=== PATIENT | female | born 1935 | race Caucasian/White ===

== ENCOUNTER 2019-12-03 19:29 | Inpatient (IN) ==
[2019-12-03 22:01] LABS: BASO# 0.03 X1000 (0.0-0.2); BASO% 0.3 % (0.0-0.8); EOS# 0.19 X1000 (0.0-0.7); EOS% 1.7 % (0.0-10.0); HEMATOCRIT 47.4 % (37.0-47.0); HEMOGLOBIN 15.5 g/dL (12.0-16.0); IMM GRAN# 0.02 X1000 (0.0-0.04); IMM GRAN% 0.2 % (0.0-0.5); MCH 30.3 PG (27-31); MCHC 32.7 g/dL (33-37); MCV 92.8 FL (81-99); MONO# 0.88 X1000 (0.11-0.59); MONO% 8.1 % (1.7-9.3); MPV 10.7 FL (7.4-10.4); NEUT% 67.7 % (42.2-75.2); PLT 178 X1000 (130-400); RBC 5.11 XMIL (4.2-5.4); RDW 13.2 % (11.5-14.5); WBC 10.92 X1000 (4.8-10.8)
--- NOTE | 2019-12-03 22:04 | Diag Imaging Result Doc PS360 ---
EXAM: CT ANGIOGRM PULMONARY ARTERIES HISTORY: SOB x 1wk,hypoxia,elevated d-dimer TECHNIQUE: CT chest with intravenous contrast. Pulmonary arterial protocol with MIP images. COMPARISON: None. FINDINGS: There are large bilateral pulmonary emboli in the main pulmonary arteries with large emboli extending into each of the lobes. The heart is mildly enlarged. No pleural effusions. No aortic aneurysm or dissection. Calcified right middle lobe granuloma. No consolidation. No bronchiectasis. IMPRESSION: Large bilateral pulmonary emboli. This report was discussed with Rhea Skelton in the ER on 12/03/2019 at 10:00 PM and was readback. This exam was performed using automated exposure control, adjustment of mA or kV according to patient size, and/or use of iterative reconstruction technique. Electronically signed by Jorge Haider 12/03/2019 10:01 PM
[2019-12-03 22:09] LABS: INR 1.1; PROTIME 14.3 Seconds (11.0-16.0)
[2019-12-03 22:10] LABS: PTT 28.2 Seconds (22.3-41.8)
[2019-12-03 23:35] LABS: ALLEN TEST YES; BE -3.6 mmoll (-3.0-3.0); BLOOD TYPE ARTERIAL; METHB 0.8 % (0.0-1.5); O2HB 92.4 % (95.0-99.0); PCO2(98.6) 28 mmHg (35-45); PO2(98.6) 62 mmHg (60-100); SAMPLE BLOOD; SAO2 94.5 % (95.0-100.0); THB 15.4 g/dL (11.5-17.4); pH(98.6) 7.44 (7.35-7.45)
[2019-12-03 23:36] LABS: MODALITY VENTIMASK
[2019-12-04] MEDS ORDERED: ZOFRAN IV PRN (00:58)
[2019-12-04] MEDS ORDERED: TYLENOL PO PRN (00:58)
[2019-12-04] MEDS ORDERED: HEPARIN IV ONE ×2 (01:25→17:50)
[2019-12-04] MEDS: HEPARIN 25,000 UNITS/D5W 25,000 UNIT/250 ML IV.SOLN IV SCH (01:35)
[2019-12-04 04:25] LABS: ALLEN TEST YES; BE -2.7 mmoll (-3.0-3.0); BLOOD TYPE ARTERIAL; HCO3-(ACT) 22.6 mmoll (20.0-26.0); METHB 1.3 % (0.0-1.5); O2HB 91.4 % (95.0-99.0); PCO2(98.6) 32 mmHg (35-45); PO2(98.6) 62 mmHg (60-100); SAMPLE BLOOD; SAO2 93.7 % (95.0-100.0); THB 14.8 g/dL (11.5-17.4); pH(98.6) 7.42 (7.35-7.45)
[2019-12-04 04:26] LABS: MODALITY VENTIMASK
[2019-12-04 05:40] LABS: BASO# 0.02 X1000 (0.0-0.2); BASO% 0.2 % (0.0-0.8); EOS# 0.17 X1000 (0.0-0.7); HEMATOCRIT 45.6 % (37.0-47.0); HEMOGLOBIN 15.1 g/dL (12.0-16.0); IMM GRAN# 0.02 X1000 (0.0-0.04); IMM GRAN% 0.2 % (0.0-0.5); LYMPH# 2.75 X1000 (1.2-3.4); LYMPH% 31.8 % (20.5-51.1); MCH 30.8 PG (27-31); MCHC 33.1 g/dL (33-37); MCV 92.9 FL (81-99); MONO# 0.67 X1000 (0.11-0.59); MONO% 7.7 % (1.7-9.3); NEUT# 5.03 X1000 (1.4-6.5); NEUT% 58.1 % (42.2-75.2); PLT 162 X1000 (130-400); RBC 4.91 XMIL (4.2-5.4); RDW 13.2 % (11.5-14.5); WBC 8.66 X1000 (4.8-10.8)
[2019-12-04 06:27] LABS: ALB/GLOB RATIO 1.2; ALBUMIN 3.8 g/dL (3.5-5.0); CALCIUM 9.8 mg/dL (8.8-10.2); CREATININE 0.9 mg/dL (0.5-0.9); MAGNESIUM 2.3 mg/dL (1.5-2.7); POTASSIUM 4.5 mmol/L (3.5-5.1); TOTAL BILIRUBIN 0.73 mg/dL (0.20-1.00)
--- NOTE | 2019-12-04 07:16 | HISTORY AND PHYSICAL ---
PRIMARY CARE PROVIDER: Dr. Ashley Miguel. CHIEF COMPLAINT: Shortness of breath. HISTORY OF PRESENT ILLNESS: Ms. Clarke is an 84-year-old, female with a past medical history most notable for hypertension, hyperlipidemia, and thyroid disease. The patient states that for one week now, she has been having shortness of breath. She states that at rest, she is not dyspneic, though when she gets up and walks only a short distance, she becomes very dyspneic. She denies any headache, dizziness, or lightheadedness. She denies any chest pain or cough. She denies any abdominal pain, nausea, vomiting, or diarrhea. She denies any hematochezia or melena. She denies any dysuria or urinary frequency. She denies any pain, numbness, tingling or swelling in extremities. The patient also denies any fever, body aches, or chills. She denies any recent illnesses or being around anyone who has been sick. She also denies any recent travel or any recent episodes where she was sitting for a long time or was immobile for a long time. She also denies any history of DVT or PE. She denies any known family history of this as well. The patient did present to Dr. Miguel's office today for further evaluation of her shortness of breath. According to reports from Dr. Miguel to Dr. Gallegos, the patient was dyspneic, was hypoxic. She performed studies of troponin and D-dimer. Her D-dimer was 8.05 and her troponin was 42. Dr. Miguel did bring the patient to the ER, though did call Dr. Gallegos for the patient to be direct admitted. The patient's initial vital signs were temperature 97.7 degrees, heart rate 98, respirations 18, blood pressure was 119/78, oxygen saturation was 90% on room air. The patient was placed on nasal cannula at 2 L. Creatinine was slightly elevated at 1.2 with a GFR of 43. Dr. Miguel did send some laboratory work from 11/02/2019. At that time, her creatinine was 1. The patient denied any history of having any kidney disease. I did notify Dr. Gallegos of the patient's slightly elevated creatinine of 1.2 with a GFR of 43. He did state to go ahead and continue with CTA of pulmonary arteries. Pulmonary arteriogram did show the patient had large bilateral pulmonary emboli in the main pulmonary arteries with large emboli extending into each of the lobes. Her heart was mildly enlarged but there was no effusions, no consolidations, no aortic aneurysm or dissection noted. The patient was placed in the ICU for close monitoring. REVIEW OF SYSTEMS: A 14 point review of systems was conducted with the patient and all were negative except for pertinent positives mentioned above in the HPI. PAST MEDICAL HISTORY: 1. Hypertension. 2. Hyperlipidemia. 3. Seasonal allergies. 4. Sciatic nerve pain. 5. Thyroid disease. 6. Overactive bladder. 7. Cataracts. 8. History of GERD with a small hiatal hernia, status post esophageal dilation. 9. History of bladder prolapse and recurrent urinary tract infections, status post bladder surgery. PAST SURGICAL HISTORY: 1. Ultrasound-guided ablation of the right greater saphenous vein for varicose veins with pain by Dr. Valenzuela in July 2018. 2. Arthroscopy of bilateral shoulders. 3. Cataract surgery. 4. Partial hysterectomy. 5. Tonsillectomy and adenoidectomy. SOCIAL HISTORY: The patient denied any tobacco, alcohol, or illicit drug use. She . Her was present at bedside with her. FAMILY HISTORY: Positive for her mother having a history of lung problems. Her father had a history of heart problems. ALLERGIES: Patient has no known allergies. HOME MEDICATIONS: We are awaiting for the patient's home medication list to be updated and verified, though she did inform me that she takes amiloride 5 mg tablets b.i.d. for BP and fluid retention, Claritin 10 mg p.o. daily, Cozaar 100 mg 1 tablet p.o. daily, Estrace vaginal cream 0.1 mg/g applied to internal and external of vagina 3 times per week, felodipine 2.5 mg extended release tablet 1 p.o. daily for blood pressure, gabapentin 100 mg capsules (the patient is instructed to take two capsules twice a day at 7 a.m. and 3 p.m. as needed, as well as she may take an additional four 100 mg capsules at bedtime if needed for sciatica pain), levothyroxine 88 mcg 1 p.o. daily, lovastatin 10 mg 1 p.o. at bedtime, Myrbetriq 50 mg tablet extended release 1 p.o. q.a.m., Nasonex 50 mcg/inhaled nasal spray to use as directed p.r.n., Systane ophthalmic solution to use as directed in both eyes as needed for dry eyes, vitamin B12 with 2500 mcg sublingual tablet once daily, Zyrtec 10 mg tablet 1 p.o. daily as needed. DIAGNOSTIC DATA/LABORATORY RESULTS: White blood cell count is 10,920, hemoglobin 15.5, hematocrit 47.4, platelet count is 178,000. PT 14.3, INR 1.1, PTT is 28.2. Sodium 140, potassium 3.9, chloride 104, serum bicarb is 21, BUN 16, creatinine 1.2, with a GFR of 43, glucose 123, calcium 9.5. Liver function tests are within normal limits. CK is 71, troponin T high sensitivity was 42. Arterial blood gases were obtained on a Ventimask at 50% FiO2, pH 7.44, pCO2 of 28, PO2 of 62, HC03 of 22, base excess is -6.3, O2 saturation is 94.5. EKG showed normal sinus rhythm with a possible inferior infarct, age undetermined, at a rate of 94, with a QTc of 507. CT angiogram of pulmonary arteries showed large bilateral pulmonary emboli in the main pulmonary arteries with large emboli extending into each of the lobes. The heart is mildly enlarged. No pleural effusions. No aortic aneurysm or dissection. There was a calcified right middle lobe granuloma. No consolidation. No bronchiectasis. PHYSICAL EXAMINATION: VITAL SIGNS: Temperature 97.7 degrees, heart rate is 98, respirations 17, blood pressure is 135/76, oxygen saturation is 94% on a Ventimask at 50% FiO2. HEENT: Head is atraumatic, normocephalic. Pupils are equal, round, reactive to light, were 3 mm bilaterally and brisk. Oral mucosa was moist. Oropharynx was clear. NECK: Supple. Trachea midline. There did appear to be some slight JVD noted upon examination. CARDIOVASCULAR: Patient has S1, S2 present. No murmurs, gallops, rubs appreciated, with a regular rate and rhythm. PULMONARY: Patient has symmetrical chest expansion bilaterally. Lung sounds were clear to auscultation in bilateral full villarreal. ABDOMEN: Soft, nontender, nondistended. Bowel sounds were present in all 4 quadrants, were normoactive. EXTREMITIES: No cyanosis, edema, swelling, erythema, or tenderness noted. INTEGUMENTARY: The patient's skin is pink, warm, and dry. NEUROLOGICAL: Patient is alert and oriented to person, place, time, and situation. There were no focal neurological deficits noted. ASSESSMENT AND PLAN: 1. Bilateral pulmonary emboli. For this, we have started the patient on a heparin drip per protocol. She will be on strict bedrest at this time. We also have ordered a venous Doppler of bilateral lower extremities to rule out any possible deep venous thrombosis as well. The patient is not complaining of any shortness of breath at rest. This is still just upon exertion. She is hypoxic. This did slightly worsen after her arrival to the intensive care unit. I lightly suspect that this was from the patient lying flat to be moved from one bed to another. She was previously 90% on room air and was requiring nasal cannula at 2 L. At this time, we have bumped her up to a Ventimask at 50%. We will continue to monitor oxygen saturations closely. We will repeat arterial blood gases in the morning. We have placed a consult with Dr. Mccann with pulmonology. We have also placed a consult with Dr. Fontaine with hematology. We have ordered a hypercoagulable workup as well. The patient was placed in the intensive care unit for close monitoring. She will be on continuous cardiac telemetry and pulse oximetry. She will have vital signs per intensive care unit protocol. 2. Hypoxic respiratory failure. This is likely secondary to her bilateral pulmonary emboli. As previously mentioned above, we have placed the patient with supplemental oxygen at this time. She is on a Ventimask at 50%. She is tolerating this well. Oxygen saturations are 94-95%. The patient is not in respiratory distress. We will continue this at this time. We will repeat arterial blood gases in the morning. We have placed a consult with Dr. Mccann, pulmonology. We will await his evaluation and further recommendations for management. 3. Elevated troponin. We will continue to do a series of cardiac enzymes. Repeat electrocardiogram in the morning. The patient is not reporting any chest pain at this time. 4. History of hypertension. The patient does take Cozaar and felodipine, though her blood pressures at this time are within normal limits. Last reading was 118/69 with a MAP of 76. We will hold these medications at this time. We will monitor her blood pressure closely and implement antihypertensives only if necessary. 5. Thyroid disease. We have ordered a TSH. We are awaiting the patient's home medication list being verified, though it does look as though she does take levothyroxine 88 mcg by mouth once daily according to her external medication history. 6. Venous thromboembolism prophylaxis being provided with above-mentioned heparin drip. 7. The patient has been placed in the intensive care unit for close monitoring. We did have her on strict bedrest at this time. Do strict intake and output. For tonight, we will place her nothing per oral except for medications, though if the patient continues to do okay throughout the night, she can likely be switched to maybe a heart healthy diet in the morning. We have ordered an echocardiogram as well, given her mildly enlarged heart, pulmonary embolism, and elevated troponins. We are awaiting this also. Further orders and recommendations pending hospital course, diagnostic studies, and physician evaluation. Dictated by BALJINDER Purdy for Lisandro Gallegos MD cc: MD Ashley Fay MD
--- NOTE | 2019-12-04 07:58 | EKG Report ---
Test Performed on : 12/04/2019 07:04:08 AM Test Reason : PE and Elevated Troponin Blood Pressure : / mmHG Vent. Rate : 075 BPM Atrial Rate : 075 BPM P-R Int : 158 ms QRS Dur : 080 ms QT Int : 436 ms P-R-T Axes : 062 039 010 degrees QTc Int : 486 ms Sinus rhythm. with marked sinus arrhythmia. T wave abnormality, consider anterior ischemia Prolonged QT Abnormal ECG When compared with ECG of 03-DEC-2019 22:15, (Unconfirmed) Borderline criteria for Inferior infarct are no longer present Confirmed by Ronny Portillo MD ([id number]) on 12/04/2019 4:19:34 PM
--- NOTE | 2019-12-04 08:00 | EKG Report ---
Test Performed on : 12/03/2019 10:15:08 PM Test Reason : SOB Blood Pressure : / mmHG Vent. Rate : 094 BPM Atrial Rate : 094 BPM P-R Int : 166 ms QRS Dur : 084 ms QT Int : 406 ms P-R-T Axes : 060 029 -05 degrees QTc Int : 507 ms Normal sinus rhythm. Possible Inferior infarct , age undetermined Anterior infarct , age undetermined Abnormal ECG When compared with ECG of 28-APR-2015 12:45, T wave inversion now evident in Inferior leads T wave inversion now evident in Anterior leads QT has lengthened Unconfirmed Result
--- NOTE | 2019-12-04 10:57 | PROGRESS NOTE ---
DATE: 12/04/2019 SUBJECTIVE: Patient reports feeling fine at rest she is breathing okay. She is currently requiring oxygen by Venturi mask. No acute issues noted. She is currently on heparin drip. OBJECTIVE: Vital Signs: Temperature 98.4 heart rate 98, respiratory rate 20, blood pressure 118/69, O2 saturation 94% on Venturi mask. General: This is a 89-year-old, female lying in bed, in no acute distress. Cardiovascular: S1, S2 heard. No murmurs, gallops, or rubs. Regular rate and rhythm. Respiratory: Clear bilaterally to auscultation. No work of breathing or using accessory muscles. Abdomen: Soft, nontender to palpation. Bowel sounds present. No organomegaly. Extremities: No clubbing, cyanosis or edema. Peripheral pulses present in both legs. Neurological: Patient alert oriented x3. Moves 4 extremities. LABORATORY DATA: Repeated. ASSESSMENT AND PLAN: 1. Bilateral pulmonary embolism. The patient is on heparin drip. She is hypoxic requiring oxygen by Venturi mask. There has been a mild elevation of troponin most likely related to right heart strain. Echocardiogram has been done. She is hemodynamically stable so at this point, we will continue with the same management. Pulmonary has been consulted. We will follow recommendations. 2. Acute respiratory failure secondary to condition #1. We will continue with oxygen supplementation. We will check ABG tomorrow. 3. Hypertension. Blood pressure is now in the range of 110 and 120 systolic blood pressure so at this point, I am not going to restart any blood pressure medication unless the blood pressure started getting really high. 4. Hypothyroidism will continue home dose of levothyroxine. DISPOSITION: We will continue to monitor this patient closely. cc: Scout Bullard MD
--- NOTE | 2019-12-04 20:26 | PROVIDER PROGRESS NOTE ---
Progress Note Pulmonary: Examined and full consult to follow.
--- NOTE | 2019-12-04 20:28 | PULMONOLOGY CONSULTATION ---
DATE: 12/04/2019 REQUESTING PROVIDER: BALJINDER Purdy REASON FOR CONSULTATION: Bilateral pulmonary emboli. HISTORY OF PRESENT ILLNESS: This is an 84-year-old female with a medical history of hypertension, hyperlipidemia, hypothyroidism, overactive bladder, bladder prolapse and recurrent urinary tract infection. She presented with shortness of breath with activity for [address] angiogram pulmonary arteries revealed large bilateral pulmonary emboli. Initial lab work show mild leukocytosis and mild troponin T elevation, and proBNP elevation. Heparin drip has been started since admission. The patient currently is lying in bed with a Venturi mask 50%. She is awake and alert. Her vital signs have been relatively stable since admission. She reports dyspnea on exertion, but no chest pain, palpitation, headache, dizziness, fever or chills. She has no cough, wheezing, orthopnea, paroxysmal nocturnal dyspnea or pedal edema. She reports she is an active person usually. She had a bladder tack procedure performed in May 2019. After that procedure, she tried to stay as active as she could, but she cannot bend or hand picker any stuff. She reports no family history of blood clots. PAST MEDICAL HISTORY: 1. Hypertension. 2. Hyperlipidemia. 3. Seasonal allergies. 4. Sciatic nerve pain. 5. Hypothyroidism. 6. Overactive bladder. 7. Cataracts. 8. History of gastroesophageal reflux disease with a small hiatal hernia, status post esophageal dilation. 9. History of bladder prolapse and recurrent urinary tract infections, status post bladder surgery. PAST SURGICAL HISTORY: 1. Ultrasound-guided ablation of right greater saphenous vein for varicose veins with pain, by Dr. Valenzuela in July 2018. 2. Arthroscopy of bilateral shoulders. 3. Cataract surgery. 4. Partial hysterectomy. 5. Tonsillectomy. 6. Adenoidectomy. 7. Bladder tack in May 2019. FAMILY HISTORY: The patient is a never-smoker. She has no history of alcohol or illicit drug use. She is and lives at home with her family. FAMILY HISTORY: Positive for some lung disease and heart disease. ALLERGIES: Sulfa. REVIEW OF SYSTEMS: A 10-point review of systems was conducted and the pertinent is listed within the HPI, otherwise noncontributory. PHYSICAL EXAMINATION: Vital signs: Temperature 98.4 degrees, blood pressure 114/73, pulse 90, respiratory rate 19, oxygen saturation 96% on Venturi mask 50%.General: Well- developed, well- nourished, lying in bed with no acute distress noted. Family at the bedside. HEENT: Atraumatic, normocephalic. Trachea midline. Mucosa pink and moist. Pupils equal, round, reactive to light. Respiratory: Even and unlabored. Symmetrical excursion. Clear to auscultation bilaterally with good air entry bilaterally. Cardiovascular: Regular rate and rhythm with S1 and S2 appreciated. Gastrointestinal: Soft, nontender, nondistended. Normoactive bowel sounds in all 4 quadrants. Extremities: No pedal edema. No cyanosis. No clubbing. Dorsalis pedis 2+ bilaterally. Neurologic: Alert and oriented x3. Speech fluent. Follows commands. LABORATORY DATA: White blood cells 8.66, hemoglobin 15.1, hematocrit 45.6, platelets 162,000. Sodium 141, potassium 4.5, chloride 106, carbon dioxide 20, BUN 14, creatinine 0.9, glucose 122. ABG: PH is 7.42, pCO2 is 32, pO2 is 62, HCO3 is 22.6, base excess -2.7, oxyhemoglobin 91.4 on Venturi mask 50%. IMAGING DATA: See HPI. ASSESSMENT: This is an 84-year-old female with medical history of hypertension, hyperlipidemia, seasonal allergies, sciatic nerve pain, hypothyroidism, overactive bladder, gastroesophageal reflux disease, bladder prolapse and recurrent urinary tract infections. She had a bladder tack surgery done last May. She has been admitted since 12/03/2019 with bilateral large pulmonary emboli. 1. Acute hypoxemic respiratory failure secondary to large bilateral pulmonary emboli. 2. Bilateral pulmonary emboli, likely related to recent bladder tack surgery performed in May 2019. 3. Mildly elevated troponin, trending down slowly. PLAN: 1. Supplemental oxygen. We will titrate oxygen to patient's needs per clinical protocol. 2. The patient has been hemodynamically stable since admission. There is no need for tPA. 3. Echocardiogram is ordered. 4. Heparin drip has been ordered. 5. The patient has been on strict bed rest since admission. 6. We will follow up ABG and coagulation profile. 7. Further recommendations pending hospital course. Thank you for the courtesy of this consult. Dr. Perez did the examination, evaluation, management and orders. BALJINDER did the dictation for Dr. Perez according to his direction. Total evaluation time in minutes: 36. Dictated by BALJINDER Ayala for Ligia Perez MD cc: BALJINDER Ayala MD [facility]
[2019-12-05] MEDS: HEPARIN 25,000 UNITS/D5W 25,000 UNIT/250 ML IV.SOLN IV SCH (02:28)
[2019-12-05 06:31] LABS: ALLEN TEST YES; BE -2.7 mmoll (-3.0-3.0); BLOOD TYPE ARTERIAL; HCO3-(ACT) 22.8 mmoll (20.0-26.0); METHB 1.2 % (0.0-1.5); MODALITY VENTIMASK; O2(CT) 19.6 mL/dL (15.0-23.0); O2HB 95.1 % (95.0-99.0); PCO2(98.6) 31 mmHg (35-45); PO2(98.6) 82 mmHg (60-100); SAMPLE BLOOD; SAO2 97.5 % (95.0-100.0); THB 14.6 g/dL (11.5-17.4); pH(98.6) 7.43 (7.35-7.45)
--- NOTE | 2019-12-05 07:07 | PROGRESS NOTE ---
DATE: 12/05/2019 SUBJECTIVE: The patient reports breathing fine. She continues to require oxygen by Venturi mask. I am not quite sure if we tried to wean off of oxygen during the last 24 hours. No acute issues noted as per nursing staff. She continues to be on heparin drip. OBJECTIVE: Vital Signs: Temperature 98.1 degrees, heart rate 81, respiratory rate 22, and blood pressure 112/56. 02 sat 95% General: This is an 84-year-old female lying in bed in no acute distress. Cardiovascular: S1, S2 heard. No murmurs, gallops, or rubs. Regular rate and rhythm. Respiratory: Clear bilaterally to auscultation. No work of breathing or using accessory muscles. Abdomen: Soft, nontender to palpation. Bowel sounds present. No organomegaly. Extremities: No clubbing, cyanosis, or edema. Peripheral pulses present in both legs. Neurological: Patient is alert and oriented x3. Moves 4 extremities. LABORATORY DATA: CBC and BMP are pending at time of dictation. ABG from today shows pH 7.43 with pCO2 31, PO2 of 82 and bicarbonate 22.8. ASSESSMENT AND PLAN: 1. Acute respiratory failure secondary to bilateral pulmonary embolism. She continues to require oxygen supplementation, in this case, oxygen via Venturi mask. We will try to wean off oxygen today. ABG from today shows better gas exchange. At this point, we will continue with the same management. For pulmonary embolism, we will continue heparin drip. At presentation, there was mild elevation in troponins are most likely related to right heart strain. Echocardiogram has been done, but has not been read yet. She continues to be hemodynamically stable so no need for tPA. At this point, we will continue to monitor. 2. Hypertension. Blood pressure has been in the range of 110 and 120 so at this point, I do not think we need to restart any blood pressure medication. 3. Hypothyroidism. We will continue home doses of levothyroxine. 4. Disposition: I think this patient is stable enough to go to PVC unit today. cc: Scout Bullard MD [facility]ITAL[facility]havana
[2019-12-05 09:15] LABS: HEMATOCRIT 43.7 % (37.0-47.0); HEMOGLOBIN 14.4 g/dL (12.0-16.0); MCH 30.6 PG (27-31); MPV 10.8 FL (7.4-10.4); RBC 4.7 XMIL (4.2-5.4); RDW 12.9 % (11.5-14.5); WBC 7.23 X1000 (4.8-10.8)
[2019-12-05 11:14] LABS: AGAP 13; BUN 12 mg/dL (8-22); CALCIUM 8.6 mg/dL (8.8-10.2); CHLORIDE 105 mmol/L (98-107); COSMO 282; CREATININE 0.9 mg/dL (0.5-0.9); GLUCOSE 142 mg/dL (70-104); POTASSIUM 3.9 mmol/L (3.5-5.1); SODIUM 140 mmol/L (136-145); TCO2 22 mmol/L (25-35)
--- NOTE | 2019-12-05 16:27 | PROVIDER PROGRESS NOTE ---
Progress Note Dr. Perez Progress Note/Pulmonary and or critical care Subjective: The patient has been placed on NC 4L rather than VM since this morning. She tolerates well. She is awake and alert. She states she is feeling fine and she has no complaint at this time. Her VSs stays relatively stable. Patients daughter at the bedside. Input was appreciated from Dr. Moore and other teams on the case. Objective: Vital Signs: T 98.6 (No fever in last 24 hours), PA 88, RR 21, BP 128/64 and SaO2 92% on NC 4L I/O: -1107 ml Physical Examination: General: Lying in bed with no acute distress noted. Very pleasant and cooperative. HEENT: Normocephalic. Trachea midline. Mucosa pink and moist. PERRL. Chest: Even and unlabored. Symmetrical excursion. Good air entry bilaterally. CVS: S1 and S2 appreciated. Abdomen: Soft. Nontender. Nondistended. Normoactive bowel sounds noted. Extremities: No pedal edema/cyanosis/clubbing. Neuro: A/O x3. Speech fluent. Follow commands. Labs and Radiology: Laboratory Results 12/04/19 12/04/19 12/04/19 04:50 16:14 16:14 WBC RBC Hgb Hct MCV MCH MCHC RDW Std Deviation Plt Count MPV PTT (Heparin Protocol) 54.1 D Specimen Type Sample Site pH pCO2 pO2 HCO3 Base Excess Oxyhemoglobin ABG O2 Sat (Calculated) ABG O2 Saturation ABG Carboxyhemoglobin ABG Methemoglobin Andrey Test A-a O2 Difference Total Hemoglobin Lactate Liter Flow Blood Gas Modality FiO2 % Sodium Potassium Chloride Carbon Dioxide Anion Gap BUN Creatinine BUN/Creatinine Ratio Glucose Calculated Osmolality Calcium Plasma Lactate 1.2 Homocysteine SEE COMMENTS 12/04/19 12/04/19 12/05/19 19:38 20:45 05:15 WBC RBC Hgb Hct MCV MCH MCHC RDW Std Deviation Plt Count MPV PTT (Heparin Protocol) 170.0 H* D 75.1 D Specimen Type Sample Site pH pCO2 pO2 HCO3 Base Excess Oxyhemoglobin ABG O2 Sat (Calculated) ABG O2 Saturation ABG Carboxyhemoglobin ABG Methemoglobin Andrey Test A-a O2 Difference Total Hemoglobin Lactate Liter Flow Blood Gas Modality FiO2 % Sodium Potassium Chloride Carbon Dioxide Anion Gap BUN Creatinine BUN/Creatinine Ratio Glucose Calculated Osmolality Calcium Plasma Lactate 1.6 Homocysteine 12/05/19 12/05/19 12/05/19 06:17 08:50 08:50 WBC 7.23 RBC 4.70 Hgb 14.4 Hct 43.7 MCV 93.0 MCH 30.6 MCHC 33.0 RDW Std Deviation 12.9 Plt Count 178 MPV 10.8 H PTT (Heparin Protocol) Specimen Type ARTERIAL Sample Site R BRACHIAL pH 7.43 pCO2 31 L pO2 82 HCO3 22.8 Base Excess -2.7 Oxyhemoglobin 95.1 ABG O2 Sat (Calculated) 19.6 ABG O2 Saturation 97.5 ABG Carboxyhemoglobin 1.20 ABG Methemoglobin 1.2 Andrey Test YES A-a O2 Difference 236.0 Total Hemoglobin 14.6 Lactate 0.90 Liter Flow 15.0 Blood Gas Modality VENTIMASK FiO2 % 50.0 Sodium 140 Potassium 3.9 Chloride 105 Carbon Dioxide 22 L Anion Gap 13 BUN 12 Creatinine 0.9 BUN/Creatinine Ratio 13 Glucose 142 H Calculated Osmolality 282 Calcium 8.6 L Plasma Lactate Homocysteine Assessment: Acute hypoxemic respiratory failure secondary to large bilateral pulmonary emboli. Improving. Large bilateral pulmonary emboli. Mild troponin elevation. Trending down. Likely secondary to large bilateral pulmonary emboli induced right heart strain. Plan: Supplemental oxygen. We titrated oxygen to patients needs per clinical protocols. We keep monitoring patients response closely. The patient stays hemodynamically stable since admission. There is no need for tPA. Heparin drip. Strict bed rest. Ok to be transferred to the floor with telemetry or PVC. Total evaluation time in minutes: 33.
--- NOTE | 2019-12-05 19:14 | Extremity Venous Study ---
PROCEDURE NAME: Venous U/S Bilateral Legs - 12/04/2019 REFERRING PHYSICIAN: Lisandro. READING PHYSICIAN: Akash Valenzuela MD [employer]: [employer]. INDICATION: Bilateral pulmonary embolus. Comparison study 03/15/2018. FINDINGS: The deep and superficial veins of the lower extremities were imaged throughout their course. All but the right popliteal vein are compressible and patent without thrombus. The right popliteal vein, however, has an occlusive mobile thrombus. INTERPRETATION: There is acute deep vein thrombosis of the right popliteal vein. This is a significant change from the prior study on 03/15/2018, which was negative at that time. cc: Akash Valenzuela MD
--- NOTE | 2019-12-05 20:21 | ECHO REPORT ---
ORDER DATE: 12/04/2019 MEASUREMENTS: 1. Septal thickness 1.5. 2. Left ventricular internal diameter in diastole 3.7. 3. Posterior wall thickness 1.4. 4. Left ventricular internal diameter in systole 2.5. 5. Left atrium 3.4. 6. Aortic root 2.9. SUMMARY: 1. Fair quality study. 2. Very mild aortic valve sclerosis demonstrated with adequate aortic valve opening evident. The peak gradient across the aortic valve is less than 10 mmHg. Mitral annular calcification is demonstrated. 3. Tricuspid and pulmonic valves are without evidence of structural abnormality with moderate tricuspid regurgitation and mild pulmonic insufficiency. The estimated systolic PA pressure by Doppler is 65 to 70 mmHg, suggesting [id number] pulmonary hypertension. 4. The aortic root is normal in size. 5. Normal left ventricular chamber size with moderate concentric left ventricular hypertrophy is demonstrated. Estimated left ventricular ejection fraction appears to be at least 65%. No regional wall motion abnormalities are evident. 6. Left atrium is mildly enlarged on 2-dimensional images. The right atrium and right ventricle are moderately enlarged with moderately reduced right ventricular systolic function. 7. No pericardial effusion. 8. Appearance of inferior vena cava suggests normal central venous pressure. CONCLUSIONS: 1. Very mild aortic valve sclerosis without stenosis. 2. Mitral annular calcification. 3. Moderate concentric left ventricular hypertrophy with estimated left ventricular ejection fraction of at least 65%. 4. Mild left atrial enlargement. 5. Moderate right atrial and right ventricular enlargement with moderately depressed right ventricular systolic function. 6. Moderate tricuspid regurgitation with [id number] pulmonary hypertension by Doppler. cc: Evan Boone MD
[2019-12-06] MEDS: HEPARIN 25,000 UNITS/D5W 25,000 UNIT/250 ML IV.SOLN IV SCH ×2 (01:51→02:08)
[2019-12-06 04:37] LABS: ALLEN TEST YES; BE -2.6 mmoll (-3.0-3.0); BLOOD TYPE ARTERIAL; HCO3-(ACT) 22.8 mmoll (20.0-26.0); O2(CT) 19.8 mL/dL (15.0-23.0); O2HB 95.1 % (95.0-99.0); PCO2(98.6) 31 mmHg (35-45); PO2(98.6) 79 mmHg (60-100); SAMPLE BLOOD; SAO2 97.9 % (95.0-100.0); THB 14.8 g/dL (11.5-17.4); pH(98.6) 7.43 (7.35-7.45)
[2019-12-06 04:39] LABS: MODALITY CANNULA
[2019-12-06 04:47] LABS: HEMATOCRIT 41.7 % (37.0-47.0); HEMOGLOBIN 14.1 g/dL (12.0-16.0); MCH 31.1 PG (27-31); MCHC 33.8 g/dL (33-37); MCV 92.1 FL (81-99); MPV 10.2 FL (7.4-10.4); RBC 4.53 XMIL (4.2-5.4); RDW 12.7 % (11.5-14.5); WBC 6.55 X1000 (4.8-10.8)
[2019-12-06 04:54] LABS: AGAP 12; BUN 11 mg/dL (8-22); CALCIUM 8.7 mg/dL (8.8-10.2); CHLORIDE 103 mmol/L (98-107); COSMO 272; CREATININE 0.8 mg/dL (0.5-0.9); ESTIMATED GFR > 60; GLUCOSE 110 mg/dL (70-104); SODIUM 136 mmol/L (136-145); TCO2 21 mmol/L (25-35)
--- NOTE | 2019-12-06 07:03 | PROGRESS NOTE ---
DATE: 12/06/2019 SUBJECTIVE: The patient reports breathing fine. Denies any chest pain, chest pressure. No acute issues noted as per nursing staff overnight. OBJECTIVE: Vital Signs: Temperature 98.5 degrees, heart rate 70, respiratory rate 22, blood pressure 116/53, and O2 saturation 94% on 2 liters nasal cannula. General: On examination, this is an 84-year-old, female lying in bed, in no acute distress. Cardiovascular: S1 and S2 heard. No murmurs, gallops, or rubs. Regular rate and rhythm. Respiratory: Clear bilaterally to auscultation. No work of breathing or using accessory muscles. Abdomen: Soft, nontender to palpation. Bowel sounds present. No organomegaly. Extremities: No clubbing, cyanosis, or edema. Peripheral pulses present in both legs. Neurological: Patient alert and oriented x3. Moves 4 extremities. LABORATORY DATA: Pending at the time of my dictation. ASSESSMENT AND PLAN: 1. Acute respiratory failure secondary to bilateral pulmonary embolism. Clinically, this patient is doing better and requiring less and less oxygen. At this point, she is requiring only 2 liters by with nasal cannula. CBC is normal today. BMP is normal as well, and pCO2 is 31, pH is 7.43 with pCO2 of 79. I think at this point, the patient is stable and she can go to a regular floor today. 2. Hypertension. Blood pressure is under control. We will continue with the same management. 3. Hypothyroidism. We will continue home dose of levothyroxine. 4. Disposition. As we mentioned before, we will send this patient to a regular room today. cc: MD ALFREDO Funez
[2019-12-06] MEDS ORDERED: PEPCID PO PRN (09:02)
[2019-12-06] MEDS ORDERED: PERCOCET-5 PO PRN (09:02)
[2019-12-06] MEDS ORDERED: MIRALAX PO PRN (09:02)
[2019-12-06] MEDS ORDERED: ESTRACE VAGINAL CREAM VAG SCH (09:15)
[2019-12-06] MEDS: COZAAR PO SCH (10:50)
[2019-12-06] MEDS: SYNTHROID PO SCH (10:52)
[2019-12-06] MEDS: MEVACOR PO SCH ×2 (13:51→20:17)
--- NOTE | 2019-12-06 15:02 | PROVIDER PROGRESS NOTE ---
Progress Note Dr. Perez Progress Note/Pulmonary and or critical care Subjective: The patient has been placed on NC 2L since yesterday afternoon. She tolerates well. She is awake and alert. She states she is feeling fine. She reports no chest pain, chest pressure or chest tightness. She has no cough or SOB with activities in bed. Patients daughter and at the bedside. Input was appreciated from Dr. Mariee and other teams on the case. Objective: Vital Signs: T 97.8 (No fever in last 24 hours), ND 81, RR 20, BP 108/57 and SaO2 95% on NC 2L I/O: -826 ml Physical Examination: General: Lying in bed with no acute distress noted. Very pleasant and cooperative. HEENT: Normocephalic. Trachea midline. Mucosa pink and moist. PERRL. Chest: Even and unlabored. Symmetrical excursion. Good air entry bilaterally. CVS: S1 and S2 appreciated. Abdomen: Soft. Nontender. Nondistended. Normoactive bowel sounds noted. Extremities: No pedal edema/cyanosis/clubbing. Neuro: A/O x3. Speech fluent. Follow commands. Labs and Radiology: Laboratory Results 12/04/19 12/04/19 12/06/19 04:50 04:50 04:25 WBC RBC Hgb Hct MCV MCH MCHC RDW Std Deviation Plt Count MPV PTT (Heparin Protocol) 64.9 Lupus Inhib RVV/PTT SEE COMMENTS Specimen Type Sample Site pH pCO2 pO2 HCO3 Base Excess Oxyhemoglobin ABG O2 Sat (Calculated) ABG O2 Saturation ABG Carboxyhemoglobin ABG Methemoglobin Andrey Test A-a O2 Difference Total Hemoglobin Lactate Blood Gas Modality FiO2 % Sodium Potassium Chloride Carbon Dioxide Anion Gap BUN Creatinine Estimated GFR/1.73 m2 BUN/Creatinine Ratio Glucose Calculated Osmolality Calcium Phospholipid IgG/IgM Ab SEE COMMENTS 12/06/19 12/06/19 12/06/19 04:25 04:25 04:27 WBC 6.55 RBC 4.53 Hgb 14.1 Hct 41.7 MCV 92.1 MCH 31.1 H MCHC 33.8 RDW Std Deviation 12.7 Plt Count 183 MPV 10.2 PTT (Heparin Protocol) Lupus Inhib RVV/PTT Specimen Type ARTERIAL Sample Site R RADIAL pH 7.43 pCO2 31 L pO2 79 HCO3 22.8 Base Excess -2.6 Oxyhemoglobin 95.1 ABG O2 Sat (Calculated) 19.8 ABG O2 Saturation 97.9 ABG Carboxyhemoglobin 1.90 ABG Methemoglobin 1.0 Andrey Test YES A-a O2 Difference 110.0 Total Hemoglobin 14.8 Lactate 0.90 Blood Gas Modality CANNULA FiO2 % 32.0 Sodium 136 Potassium 4.0 Chloride 103 Carbon Dioxide 21 L Anion Gap 12 BUN 11 Creatinine 0.8 Estimated GFR/1.73 m2 > 60 BUN/Creatinine Ratio 14 Glucose 110 H Calculated Osmolality 272 Calcium 8.7 L Phospholipid IgG/IgM Ab 12/06/19 12:00 WBC RBC Hgb Hct MCV MCH MCHC RDW Std Deviation Plt Count MPV PTT (Heparin Protocol) 66.2 Lupus Inhib RVV/PTT Specimen Type Sample Site pH pCO2 pO2 HCO3 Base Excess Oxyhemoglobin ABG O2 Sat (Calculated) ABG O2 Saturation ABG Carboxyhemoglobin ABG Methemoglobin Andrey Test A-a O2 Difference Total Hemoglobin Lactate Blood Gas Modality FiO2 % Sodium Potassium Chloride Carbon Dioxide Anion Gap BUN Creatinine Estimated GFR/1.73 m2 BUN/Creatinine Ratio Glucose Calculated Osmolality Calcium Phospholipid IgG/IgM Ab Assessment: Acute hypoxemic respiratory failure secondary to large bilateral pulmonary emboli. Continued improving. She has been on NC 2L since last night and tolerates well. Large bilateral pulmonary emboli. DVT of the right popliteal vein. Pulmonary hypertension, [id number] with the estimated systolic PA pressure at 65-70 mmHg by Doppler. Mild troponin elevation. Likely secondary to large bilateral pulmonary emboli induced right heart strain. Plan: Supplemental oxygen. We titrated oxygen to patients needs per clinical protocols. We keep monitoring patients response closely. Heparin drip per Dr. Mariee. GI and DVT prophylaxis. Strict bed rest. Ok to be transferred to the floor with telemetry or PVC. Total evaluation time in minutes: 32.
--- NOTE | 2019-12-06 17:46 | HEMO/ONC CONSULTATION ---
DATE: 12/06/2019 ADMITTING PHYSICIAN: Lisandro Gallegos MD REQUESTING PHYSICIAN: Lisandro Gallegos MD We appreciate this consult. CHIEF COMPLAINT: Bilateral pulmonary emboli. HISTORY OF PRESENT ILLNESS: Ms Rhona Clarke is a very pleasant, 84-year-old female with a past medical history of hypertension, hyperlipidemia, and hypothyroidism. The patient reports that she had been having shortness of breath for approximately 1 week prior to admission. She states that the shortness of breath progressively worsened. She presented to Dr. Miguel's office for further evaluation where she was found to be dyspneic and hypoxic. Troponin and D-dimer [facility] mo were checked. D-dimer was 8.05 and troponin was 42. The patient was brought to [facility] Emergency Department for evaluation. CTA of the pulmonary arteries revealed bilateral pulmonary emboli in the main pulmonary arteries with large emboli extending into each of the lobes. The patient was placed in ICU and heparin drip was begun. We are consulted for new onset of pulmonary emboli. PAST MEDICAL HISTORY: 1. Hypertension. 2. Hyperlipidemia. 3. Hypothyroidism. 4. Overactive bladder. 5. Cataracts. 6. Gastroesophageal reflux disease. 7. Bladder prolapse. 8. Frequent urinary tract infection. PAST SURGICAL HISTORY: 1. Ablation of right greater saphenous vein ultrasound guided. 2. Arthroscopy of bilateral shoulders. 3. Cataract extraction. 4. Partial hysterectomy. 5. Tonsillectomy and adenoidectomy. 6. Bladder surgery for prolapse. SOCIAL HISTORY: The patient does not use tobacco, alcohol or illicit drugs. FAMILY HISTORY: Negative for any hematologic or oncologic disease. MEDICATIONS ON ADMISSION: 1. Amiloride. 2. Claritin. 3. Cozaar. 4. Estrace vaginal cream. 5. Felodipine. 6. Gabapentin. 7. Myrbetriq. 8. Lovastatin. 9. Levothyroxine. 10. Systane ophthalmic drops. 11. Zyrtec. ALLERGIES: The patient has no known drug allergies. REVIEW OF SYSTEMS: A 14 point review of systems was obtained and is negative except for mentioned in HPI. PHYSICAL EXAMINATION: General: Ms. Clarke is a very pleasant, 84-year-old, elderly female lying supine in bed in no immediate distress. HEENT: Normocephalic, atraumatic. Mucous membranes are pink and somewhat dry. Sclerae anicteric. Extraocular movements intact. Neck: Supple. Lungs: Clear to auscultation bilaterally. Chest expansion equal bilaterally. CV: S1, S2 is heard without murmur, rub or gallop. Abdomen: Nondistended. Extremities: No clubbing, cyanosis, or edema. Dermatologic: No rashes, bruises or lesions. Neurologic: The patient is awake, alert, and oriented x3. He has no focal deficit. LABORATORY DATA: PT 14.3, INR 1.1, PTT 28.2, hemoglobin 15.1, hematocrit 45.6, white blood cell count 8.66, platelets 162,000. Sodium 141, potassium 4.5, chloride 106, CO2 is 20, BUN 14, creatinine 0.9, and glucose is 122. ProBNP 9576. ASSESSMENT AND PLAN: 1. Bilateral pulmonary emboli. We agree with heparin drip at this time. We will initiate workup and provide treatment plan accordingly. 2. Hypoxemic respiratory failure. The patient is currently on a Ventimask as per pulmonology service. 3. Elevated troponin. Cardiology has been consulted and is following. 4. Hypertension, well controlled at this time. 5. We will follow along with you and make further recommendations pending outcomes. This is BALJINDER Etienne, dictating a consult on Rhona Clarke for Dr. Odilon Duncan. The above reflects the history, exam, assessment, and plan of Dr. Fontaine. Dictated by BALJINDER Chicas for Odilon Fontaine MD cc: BALJINDER Chicas MD
[2019-12-06] MEDS: CALTRATE 600 PO SCH (20:17)
[2019-12-06] MEDS: PLENDIL PO SCH (20:18)
[2019-12-07] MEDS: HEPARIN 25,000 UNITS/D5W 25,000 UNIT/250 ML IV.SOLN IV SCH (03:03)
[2019-12-07 06:12] LABS: HEMATOCRIT 43.9 % (37.0-47.0); HEMOGLOBIN 14.4 g/dL (12.0-16.0); MCH 30.6 PG (27-31); MCHC 32.8 g/dL (33-37); MCV 93.2 FL (81-99); MPV 10.1 FL (7.4-10.4); RBC 4.71 XMIL (4.2-5.4); RDW 12.8 % (11.5-14.5); WBC 5.8 X1000 (4.8-10.8)
[2019-12-07 06:30] LABS: CALCIUM 9.3 mg/dL (8.8-10.2); CREATININE 0.9 mg/dL (0.5-0.9); POTASSIUM 4.4 mmol/L (3.5-5.1)
--- NOTE | 2019-12-07 07:55 | PROGRESS NOTE ---
DATE: 12/07/2019 SUBJECTIVE: Patient reports breathing fine. Denies any fever or chills. OBJECTIVE: Vital Signs: Temperature 97.4 degrees, heart rate 68, respiratory rate 16, blood pressure 114/45, O2 saturation 95% on room air General Examination: This is a 89-year-old, female lying in bed, in no acute distress. Cardiovascular: S1, S2 heard. No murmurs, gallops, or rubs. Regular rate and rhythm. Respiratory: Clear bilaterally to auscultation. No work of breathing or using accessory muscles. Abdomen: Soft, nontender to palpation. Neurological: Patient alert and oriented x3. Moves all 4 extremities. LABORATORY DATA: CBC and BMP is completely normal. ASSESSMENT AND PLAN: 1. Acute respiratory failure secondary to bilateral pulmonary embolism. Clinically, this patient appears to be improved. Now requiring 3 L of oxygen by nasal cannula at this point. We are going to discontinue oxygen and see how this patient does. Labs are completely normal. I think we can move this patient to a regular room today. 2. Hypertension. Blood pressure is under control. We will continue. 3. Hypothyroidism. Will continue home doses of levothyroxine. 4. Disposition: I think if the patient does good with physical therapy, she can be discharged tomorrow. cc: Scout Bullard MD
[2019-12-07] MEDS: COZAAR PO SCH (08:43)
[2019-12-07] MEDS: PLENDIL PO SCH ×2 (08:43→21:38)
[2019-12-07] MEDS: SYNTHROID PO SCH (08:43)
[2019-12-07] MEDS: MEVACOR PO SCH ×2 (08:43→21:39)
[2019-12-07] MEDS: CALTRATE 600 PO SCH ×2 (08:43→21:38)
[2019-12-07] MEDS: MYRBETRIQ E.R. PO SCH (08:43)
[2019-12-07] MEDS: FISH OIL CONCENTRATE PO SCH (08:43)
[2019-12-07] MEDS: MIDAMOR PO SCH (08:44)
--- NOTE | 2019-12-07 21:05 | PULMONOLOGY PROGRESS NOTE ---
DATE: 12/07/2019 SUBJECTIVE: Ms. Clarke is sitting up at the bedside. She denies any fevers or chills. She states that she is breathing much better. She has no complaints. OBJECTIVE: Vital signs: Blood pressure is 106/48 with heart rate of 68, respirations 18, temperature is 97.9 degrees oral with room air saturations 94% to 96%. Eyes: Pupils equal, round, react to light. EOMs are intact. Sclerae anicteric. HEENT: Head is normocephalic, atraumatic. Mucous membranes are moist. Neck: Supple with trachea midline. Cardiovascular: Regular rate and rhythm. No murmurs. S1 and S2 appreciated. Calves are nontender bilateral with peripheral pulses palpable x4 extremities. Pulmonary: Breath sounds are clear with no increased work of breathing noted. Chest rises and falls symmetric with respiration. Gastrointestinal: Abdomen is soft, nontender, nondistended with bowel sounds in all 4 quadrants. Genitourinary: No CVA or suprapubic tenderness. Neurologic: She is alert and oriented x3. Skin: Warm and dry. LABS: WBC is 5.8 with hemoglobin 14.4, hematocrit 43.9, and platelets 225,000. Sodium is 142, potassium 4.4, BUN 12, creatinine 0.9 with a glucose of 114. ASSESSMENT AND PLAN: 1. Acute hypoxemic respiratory failure secondary to bilateral large pulmonary emboli. 2. Bilateral pulmonary emboli. 3. Deep venous thrombosis of the right popliteal vein. 4. Pulmonary hypertension, moderate to severe with an estimated systolic PA pressure of 65 to 70. PLAN: supplemental oxygen titrated per protocol. Heparin drip per protocol per Dr. Mariee. Continue GI prophylaxis. Dictated by BALJINDER Mukherjee for El Mccann MD cc: BALJINDER Mukherjee MD [facility]
[2019-12-08 04:08] VITALS: BP 102/41
[2019-12-08 05:32] LABS: HEMATOCRIT 43.8 % (37.0-47.0); HEMOGLOBIN 14.7 g/dL (12.0-16.0); MCH 30.6 PG (27-31); MCHC 33.6 g/dL (33-37); MCV 91.3 FL (81-99); MPV 10.3 FL (7.4-10.4); RBC 4.8 XMIL (4.2-5.4); RDW 12.9 % (11.5-14.5); WBC 6.29 X1000 (4.8-10.8)
[2019-12-08 05:59] LABS: CALCIUM 9.6 mg/dL (8.8-10.2); POTASSIUM 4.3 mmol/L (3.5-5.1)
[2019-12-08] MEDS: HEPARIN 25,000 UNITS/D5W 25,000 UNIT/250 ML IV.SOLN IV SCH (06:16)
[2019-12-08] MEDS ORDERED: HEPARIN 25,000 UNITS/D5W 25,000 UNIT/250 ML IV.SOLN IV SCH (07:40)
[2019-12-08] MEDS: MEVACOR PO SCH (08:24)
[2019-12-08] MEDS: CALTRATE 600 PO SCH (08:25)
[2019-12-08] MEDS: COZAAR PO SCH (08:25)
[2019-12-08] MEDS: MYRBETRIQ E.R. PO SCH (08:25)
[2019-12-08] MEDS: MIDAMOR PO SCH (08:25)
[2019-12-08] MEDS: PLENDIL PO SCH (08:25)
[2019-12-08] MEDS: SYNTHROID PO SCH (08:25)
[2019-12-08] MEDS: FISH OIL CONCENTRATE PO SCH (08:25)
--- NOTE | 2019-12-08 10:23 | DISCHARGE SUMMARY ---
ADMISSION DATE: 12/03/2019 DISCHARGE DATE: 12/08/2019 DISCHARGE DIAGNOSES: 1. Bilateral pulmonary embolism. 2. Acute respiratory failure secondary to condition #1, resolved. 3. Hypertension. 4. Hypothyroidism. CONSULTATIONS: 1. Dr. Perez from Pulmonary. 2. Dr. Fontaine from Hematology Oncology PROCEDURES: 1. Pulmonary arteriogram showed large bilateral pulmonary emboli. 2. Extremity venous study shows DVT in the right popliteal vein. 3. Echocardiogram Doppler showed very mild aortic valve sclerosis without stenosis. Ejection fraction of 65%. Mild left atrial enlargement. Moderate tricuspid regurgitation. HOSPITAL COURSE: This is an 84-year-old female who was brought to the emergency department because of shortness of breath, some sore chest pressure. Here in the emergency department, she was found out to have a D-dimer elevated with pulmonary arteriogram with results as above. Patient was started on heparin drip and admitted to the intensive care unit because she was also requiring oxygen by Venturi mask at 50% with the shortness of breath. The echocardiogram that we did basically did not show any signs of right heart strain. Progressively she was requiring less and less oxygen supplementation and at the time of discharge, patient is not requiring any oxygen. She is not short of breath at all. At this point, we are going to switch medications to Xarelto and she is going to be seen in the office by her primary care physician, and also by Dr. Fontaine from Hematology in 2 weeks. The patient is going to be discharged in stable condition. DISCHARGE PHYSICAL EXAMINATION: Vital Signs: Temperature 98.5 degrees, heart rate 75, respiratory rate 18, blood pressure 102/41. O2 saturation 98% on room air. General: This is an 84-year-old, female lying in bed, in no acute distress. Cardiovascular: S1, S2 heard. No murmurs, gallops, or rubs. Regular rate and rhythm. Respiratory: Clear bilaterally to auscultation. No work of breathing or using accessory muscles. Abdomen: Is soft, nontender to palpation. Bowel sounds present. No organomegaly. Extremities: No clubbing, cyanosis, or edema. Peripheral pulses present. Neurological: The patient is alert and oriented x3. Moves 4 extremities. DISCHARGE DISPOSITION: Home. FOLLOW-UP: 1. Primary care physician. 2. With Dr. Fontaine in 2 weeks for results of hypercoagulable profile. MEDICATIONS: 1. Percocet 5 mg 1 tablet PO every 4 hours as needed for pain. 2. Myrbetriq 50 mg 1 tablet p.o. daily. 3. Famotidine 20 mg 1 tablet p.o. daily. 4. Zyrtec 1 tablet p.o. daily 10 mg. 5. Calcium 600 mg 1 tablet p.o. twice daily. 6. Lovastatin 10 mg 1 tablet p.o. daily. 7. Felodipine 2.5 mg 1 tablet p.o. b.i.d. 8. Levothyroxine 88 mcg, 1 tablet p.o. daily. 9. Amiloride 5 mg 1 tablet p.o. daily. 10. MiraLAX as needed for constipation. 11. Xarelto 20 mg 1 tablet PO daily cc: Scout Bullard MD MTDD
== END 2019-12-08 10:19 | disposition home or self-care (01) | DRG 175 ==
LOC: DIRADM 19:29 → SUATTDRO 19:29 → ICU 22:22 → 2N 12-06 14:42 → 1N 12-07 09:49
PROVIDERS: ATTEND Internal Medicine